=== PATIENT | male | born 1945 | race Caucasian/White ===

== ENCOUNTER 2019-01-06 15:06 | Inpatient (IN) | payer MEDICARE, OTHER ==
[~2019-01-06] VITALS: Ht 180.3 cm; Wt 63.6 kg
[2019-01-06] MEDS ORDERED: CefTRIAXone 2gm/D5W 50ml 50 ML IV ONE (15:35)
[2019-01-06] MEDS ORDERED: ipratropium 0.5 MG/2.5ML nebule IH ONE (15:35)
[2019-01-06] MEDS ORDERED: magnesium 2GM in 50ml NS 50 ML IV ONE (15:35)
[2019-01-06] MEDS ORDERED: albuterol 2.5 MG/3 ML nebule CONTNEB PRN ×2 (15:35→16:00)
[2019-01-06] MEDS ORDERED: methylPREDNISolone sod succ 125mg/2ml vial IV ONE (15:35)
[2019-01-06 15:37] LABS: BASOPHILS % (AUTO) 0.2 % (0-1); EOSINOPHILS # (AUTO) 0.1 X10'3 (0-0.9); EOSINOPHILS % (AUTO) 0.8 % (0-6); HEMATOCRIT 34.1 % (42.0-52.0); HEMOGLOBIN 11.3 g/dl (14.0-17.9); LYMPHOCYTES # (AUTO) 0.2 X10'3 (1.1-4.8); LYMPHOCYTES % (AUTO) 1.8 % (21-51); MEAN CORPUSCULAR HEMOGLOBIN 31.2 PG (27.0-31.0); MEAN CORPUSCULAR HGB CONC 33.3 g/dL (33.0-36.5); MEAN CORPUSCULAR VOLUME 93.7 FL (78-98); MEAN PLATELET VOLUME 7.6 FL (7.4-10.4); MONOCYTES # (AUTO) 0.7 X10'3 (0-0.9); MONOCYTES % (AUTO) 6.2 % (2-12); NEUTROPHILS # (AUTO) 10.4 X10'3 (1.8-7.7); PLATELET COUNT 330 X10'3 (140-440); RED BLOOD COUNT 3.64 X10'6 (4.70-6.10); RED CELL DISTRIBUTION WIDTH 13.1 % (11.5-14.5); WHITE BLOOD COUNT 11.4 X10'3 (4.5-11.0)
[2019-01-06 15:46] LABS: PARTIAL THROMBOPLASTIN TIME 35 SECONDS (22-32)
[2019-01-06 15:50] LABS: ALANINE AMINOTRANSFERASE 17 U/L (12-78); ALBUMIN 2.6 G/DL (3.4-5.0); ALBUMIN/GLOBULIN RATIO 0.5 (1.1-1.5); ALKALINE PHOSPHATASE 53 IU/L (46-116); ANION GAP 9 (8-16); ASPARTATE AMINO TRANSFERASE 10 U/L (10-37); BILIRUBIN,TOTAL 0.6 MG/DL (0.1-1.0); BLOOD UREA NITROGEN 26 MG/DL (7-18); BUN/CREATININE RATIO 27.7 (5.4-32.0); CALCIUM 9.3 MG/DL (8.5-10.1); CHLORIDE 97 MMOL/L (99-107); CREATININE 0.94 MG/DL (0.60-1.10); GLUCOSE 124 MG/DL (70-104); POTASSIUM 4.5 MMOL/L (3.5-5.1); SODIUM 132 MMOL/L (135-145); TOTAL CARBON DIOXIDE 26.3 MMOL/L (24-32); TOTAL PROTEIN 7.7 G/DL (6.4-8.2); eGFR 78 ML/MIN
[2019-01-06] MEDS ORDERED: azithromycin/NS 500mg/250ml 250 ML IV ONE (16:25)
[2019-01-06] MEDS ORDERED: ondansetron/PF 4mg/2ml inj IV PRN (18:15)
[2019-01-06] MEDS ORDERED: magnesium 4gm in 100ml NS 100 ML IV PRN (18:15)
[2019-01-06] MEDS ORDERED: docusate sod 100mg capsule PO PRN (18:15)
[2019-01-06] MEDS ORDERED: acetaminophen 325mg tablet PO PRN (18:15)
[2019-01-06] MEDS ORDERED: mag hydrox/Alum hydrox/simeth 30ml oral suspension PO PRN (18:15)
[2019-01-06] MEDS ORDERED: magnesium 2GM in 50ml NS 50 ML IV PRN (18:15)
[2019-01-06] MEDS ORDERED: potassium CL 10mEq/100ml bag 100 ML IV PRN ×2 (18:15)
[2019-01-06] MEDS ORDERED: potassium Cl 20 mEq SR tablet PO PRN ×2 (18:15)
[2019-01-06] MEDS ORDERED: normal saline 1000ML IV soln IVB ONE (19:25)
[2019-01-06] MEDS: ipratropium/albuterol 3ml nebule NEB SCH (20:00)
[2019-01-06 22:15] VITALS: BP 148/89
--- NOTE | 2019-01-06 22:15 | NUR ---
PATIENT ADMITTED TO ROOM 341 FOR RESPIRATORY FAILURE R/O TB. PLACED COMFORTABLE IN BED. VITAL SIGNS TAKEN AND RECORDED.
[2019-01-06] MEDS: normal saline 1000ml 1,000 ML IV SCH (22:37)
[2019-01-07] MEDS: methylPREDNISolone sod succ 125mg/2ml vial IV SCH ×4 (01:11→23:54)
[2019-01-07] MEDS: piperacillin/tazo 3.375gm/50ml 50 ML IV SCH ×4 (01:12→23:52)
[2019-01-07] MEDS: ipratropium/albuterol 3ml nebule NEB SCH ×4 (01:45→20:58)
[2019-01-07 04:47] LABS: BASOPHILS % (AUTO) 0.2 % (0-1); EOSINOPHILS % (AUTO) 0 % (0-6); HEMATOCRIT 29.1 % (42.0-52.0); HEMOGLOBIN 9.9 g/dl (14.0-17.9); LYMPHOCYTES # (AUTO) 0.1 X10'3 (1.1-4.8); LYMPHOCYTES % (AUTO) 1.7 % (21-51); MEAN CORPUSCULAR HEMOGLOBIN 31.9 PG (27.0-31.0); MEAN CORPUSCULAR VOLUME 93.7 FL (78-98); MEAN PLATELET VOLUME 7.7 FL (7.4-10.4); MONOCYTES # (AUTO) 0.1 X10'3 (0-0.9); MONOCYTES % (AUTO) 1.1 % (2-12); NEUTROPHILS # (AUTO) 7.2 X10'3 (1.8-7.7); PLATELET COUNT 282 X10'3 (140-440); RED CELL DISTRIBUTION WIDTH 13.1 % (11.5-14.5); WHITE BLOOD COUNT 7.4 X10'3 (4.5-11.0)
[2019-01-07 05:01] LABS: ALANINE AMINOTRANSFERASE 17 U/L (12-78); ALBUMIN 2.2 G/DL (3.4-5.0); ALBUMIN/GLOBULIN RATIO 0.5 (1.1-1.5); ALKALINE PHOSPHATASE 50 IU/L (46-116); ANION GAP 4 (8-16); ASPARTATE AMINO TRANSFERASE 10 U/L (10-37); BILIRUBIN,TOTAL 0.2 MG/DL (0.1-1.0); BLOOD UREA NITROGEN 26 MG/DL (7-18); BUN/CREATININE RATIO 28.3 (5.4-32.0); CALCIUM 8.6 MG/DL (8.5-10.1); CHLORIDE 103 MMOL/L (99-107); CREATININE 0.92 MG/DL (0.60-1.10); GLUCOSE 166 MG/DL (70-104); MAGNESIUM 2.1 MG/DL (1.5-2.4); POTASSIUM 4.3 MMOL/L (3.5-5.1); SODIUM 137 MMOL/L (135-145); TOTAL CARBON DIOXIDE 29.6 MMOL/L (24-32); TOTAL PROTEIN 6.7 G/DL (6.4-8.2); eGFR 80 ML/MIN
[2019-01-07] MEDS: normal saline 1000ml 1,000 ML IV SCH ×3 (05:23→23:51)
--- NOTE | 2019-01-07 06:23 | NUR ---
Problems reprioritized. Patient report given, questions answered & plan of care reviewed with ZHOU CARTAGENA.
[2019-01-07] MEDS: K and/or MAG REPLACEMENT MC SCH (06:57)
[2019-01-07] MEDS: enoxaparin 40mg/0.4ml syringe SQ SCH (07:50)
[2019-01-07 08:00] VITALS: BP 133/83
[2019-01-07] MEDS ORDERED: LOSA25TA41 PO ×2 (08:02→08:06)
[2019-01-07] MEDS ORDERED: HYDR-4353 PO (08:02)
[2019-01-07] MEDS ORDERED: OMEP20TA5 PO (08:06)
[2019-01-07] MEDS ORDERED: BUDE10.2 INH (08:06)
[2019-01-07] MEDS ORDERED: ATOR20TA66 PO (08:06)
[2019-01-07] MEDS ORDERED: IPRA4AER IH (08:13)
[2019-01-07] MEDS ORDERED: MEGE400O2 PO (08:14)
--- NOTE | 2019-01-07 10:00 | NUR ---
[facility] downtime charting.
[2019-01-07 11:00] VITALS: BP 114/43
[2019-01-07] MEDS ORDERED: ASPI-1265 PO (11:52)
[2019-01-07] MEDS ORDERED: CHOL400T32 PO (11:53)
--- NOTE | 2019-01-07 12:09 | NUR ---
Spoke with patients sister with patients permission. Updated patients home medications from sisters list. Gave patient 2 juices and cheese stick.
--- NOTE | 2019-01-07 14:00 | NUR ---
Patient removed from Isolation by Dr. Calixto.
--- NOTE | 2019-01-07 14:54 | NUR ---
Malnutrition consult: Per H&P pt reports 25 lb wt loss in 1 year with decreased appetite. Pt with no wt hx in EMR however if truly lost 25 lbs in 1 year this is non-significant wt loss of 15%. Pt currently on a regular diet, pending documentation of PO intake. Per RN notes pt received two juices and string cheese around noon. Pt with no documented decrease in muscle strength and trace edema. Pt currently does not meet criteria for malnutrition. Pt admit with acute on chronic respiratory failure, COPD exacerbation, currently in airborne ISO to r/o TB per RN notes and possibly with community acquired pneumonia versus undiagnosed lung cancer per CT results per H&P. Will continue to follow. Addendum: 01/07/19 at [address] Amended: Links added.
--- NOTE | 2019-01-07 16:26 | NUR ---
Patient eating a hamburger from outside source.
--- NOTE | 2019-01-07 18:08 | NUR ---
Problems reprioritized. Patient report given, questions answered & plan of care reviewed with Perla CARTAGENA.
--- NOTE | 2019-01-07 18:30 | NUR ---
Patient in room EM 341. I have received report from ZHOU CARTAGENA and had the opportunity to ask questions and assume patient care.
[2019-01-07] MEDS: megestrol acetate 400mg/10ml UD oral suspension PO SCH (19:56)
[2019-01-07 20:00] VITALS: BP 146/56
[2019-01-08] VITALS: BP 144/72
[2019-01-08] MEDS: ipratropium/albuterol 3ml nebule NEB SCH ×2 (03:08→07:12)
[2019-01-08 04:44] LABS: BASOPHILS % (AUTO) 0.1 % (0-1); EOSINOPHILS % (AUTO) 0 % (0-6); HEMATOCRIT 25.9 % (42.0-52.0); HEMOGLOBIN 8.7 g/dl (14.0-17.9); LYMPHOCYTES # (AUTO) 0.2 X10'3 (1.1-4.8); MEAN CORPUSCULAR HEMOGLOBIN 31.5 PG (27.0-31.0); MEAN CORPUSCULAR HGB CONC 33.7 g/dL (33.0-36.5); MEAN CORPUSCULAR VOLUME 93.6 FL (78-98); MEAN PLATELET VOLUME 7.5 FL (7.4-10.4); MONOCYTES # (AUTO) 0.1 X10'3 (0-0.9); MONOCYTES % (AUTO) 1.5 % (2-12); NEUTROPHILS # (AUTO) 8.4 X10'3 (1.8-7.7); NEUTROPHILS % (AUTO) 96.4 % (42-75); PLATELET COUNT 260 X10'3 (140-440); RED BLOOD COUNT 2.77 X10'6 (4.70-6.10); RED CELL DISTRIBUTION WIDTH 13.1 % (11.5-14.5); WHITE BLOOD COUNT 8.7 X10'3 (4.5-11.0)
[2019-01-08 05:01] LABS: ALANINE AMINOTRANSFERASE 20 U/L (12-78); ALBUMIN 2.1 G/DL (3.4-5.0); ALBUMIN/GLOBULIN RATIO 0.5 (1.1-1.5); ALKALINE PHOSPHATASE 38 IU/L (46-116); ANION GAP 5 (8-16); ASPARTATE AMINO TRANSFERASE 17 U/L (10-37); BILIRUBIN,TOTAL 0.2 MG/DL (0.1-1.0); BLOOD UREA NITROGEN 31 MG/DL (7-18); BUN/CREATININE RATIO 35.6 (5.4-32.0); CHLORIDE 106 MMOL/L (99-107); CREATININE 0.87 MG/DL (0.60-1.10); GLUCOSE 148 MG/DL (70-104); MAGNESIUM 1.7 MG/DL (1.5-2.4); POTASSIUM 4.3 MMOL/L (3.5-5.1); SODIUM 138 MMOL/L (135-145); TOTAL CARBON DIOXIDE 26.8 MMOL/L (24-32); TOTAL PROTEIN 6.2 G/DL (6.4-8.2); eGFR 86 ML/MIN
--- NOTE | 2019-01-08 06:30 | NUR ---
Problems reprioritized. Patient report given, questions answered & plan of care reviewed with JENNA CARTAGENA.
[2019-01-08 07:12] VITALS: BP 140/72
[2019-01-08] MEDS: enoxaparin 40mg/0.4ml syringe SQ SCH (07:41)
[2019-01-08] MEDS: megestrol acetate 400mg/10ml UD oral suspension PO SCH (07:41)
[2019-01-08] MEDS: methylPREDNISolone sod succ 125mg/2ml vial IV SCH ×2 (07:41)
[2019-01-08] MEDS: K and/or MAG REPLACEMENT MC SCH (07:42)
[2019-01-08] MEDS: piperacillin/tazo 3.375gm/50ml 50 ML IV SCH (07:42)
[2019-01-08] MEDS: normal saline 1000ml 1,000 ML IV SCH (09:01)
[2019-01-08 11:49] VITALS: BP 171/75
[2019-01-08] MEDS ORDERED: LEVO750T21 PO (12:32)
[2019-01-08] MEDS ORDERED: PRED20TA PO (12:32)
[2019-01-08] MEDS ORDERED: FURO20TA4 PO (12:35)
--- NOTE | 2019-01-08 13:52 | NUR ---
Patient discharged home with family member, stable and appropriate. Family brought home O2. IV removed, explosive operator supervisor removed. All belongings taken from room. [facility] Discharge instructions given and reviewed with patient and family member, all questions answered.
== END 2019-01-08 13:56 | disposition home or self-care (01) | DRG 871 ==
LOC: ER 15:07 → SUR 3N 21:11 → CMPBEDREQ 21:24
PROVIDERS: ADMIT Family Medicine; ATTEND Family Medicine
DX: A41.9 Sepsis, unspecified organism (principal); J96.20 Acute and chronic respiratory failure, unspecified whether with hypoxia or hypercapnia; I50.31 Acute diastolic (congestive) heart failure; J18.1 Lobar pneumonia, unspecified organism; J44.1 Chronic obstructive pulmonary disease with (acute) exacerbation; E87.1 Hypo-osmolality and hyponatremia; J44.0 Chronic obstructive pulmonary disease with (acute) lower respiratory infection; R64 Cachexia; Z68.1 Body mass index [BMI] 19.9 or less, adult; D64.9 Anemia, unspecified; E78.5 Hyperlipidemia, unspecified; I11.0 Hypertensive heart disease with heart failure; Z82.49 Family history of ischemic heart disease and other diseases of the circulatory system; Z87.891 Personal history of nicotine dependence; Z99.81 Dependence on supplemental oxygen
CPT/HCPCS: 36415; 71045; 71250; 80053; 83605; 83735; 83880; 84484; 85025; 85610; 85730; 87040; 87081; 93005; 93306; 94640; 94667; 94760; 96365; 96366; 96368; 96375; 99285; G0378; J0456; J0696; J1650; J2543; J2930; J3475; J7030

== ENCOUNTER 2019-02-25 14:22 | Inpatient (IN) | payer MEDICARE, OTHER ==
[~2019-02-25] VITALS: Ht 180.3 cm; Wt 80.0 kg
[~2019-02-25 14:22] MED LIST: ASPI-1265 PO; ATOR20TA66 PO; BUDE10.2 INH; CHOL400T32 PO; FURO20TA4 PO; HYDR-4353 PO; IPRA4AER IH; LOSA25TA41 PO; MEGE400O2 PO; OMEP20TA5 PO
[2019-02-25] MEDS ORDERED: ipratropium/albuterol 3ml nebule NEB ONE (15:15)
[2019-02-25] MEDS ORDERED: methylPREDNISolone sod succ 125mg/2ml vial IV ONE (15:15)
[2019-02-25 15:35] LABS: BASOPHILS # (AUTO) 0.1 X10'3 (0-0.2); BASOPHILS % (AUTO) 0.6 % (0-1); EOSINOPHILS # (AUTO) 0.1 X10'3 (0-0.9); EOSINOPHILS % (AUTO) 0.3 % (0-6); LYMPHOCYTES # (AUTO) 0.4 X10'3 (1.1-4.8); LYMPHOCYTES % (AUTO) 2.4 % (21-51); MEAN CORPUSCULAR HEMOGLOBIN 29.5 PG (27.0-31.0); MEAN CORPUSCULAR HGB CONC 32.5 g/dL (33.0-36.5); MEAN CORPUSCULAR VOLUME 90.9 FL (78-98); MEAN PLATELET VOLUME 7.5 FL (7.4-10.4); MONOCYTES # (AUTO) 0.9 X10'3 (0-0.9); NEUTROPHILS # (AUTO) 16.4 X10'3 (1.8-7.7); NEUTROPHILS % (AUTO) 91.7 % (42-75); PLATELET COUNT 369 X10'3 (140-440); RED BLOOD COUNT 3.74 X10'6 (4.70-6.10); RED CELL DISTRIBUTION WIDTH 15.2 % (11.5-14.5); WHITE BLOOD COUNT 17.9 X10'3 (4.5-11.0)
[2019-02-25] MEDS ORDERED: levoFLOXACIN 750MG TABLET PO ONE (15:45)
[2019-02-25] MEDS ORDERED: normal saline 1000ml 1,000 ML IV ONE (16:00)
[2019-02-25 16:07] LABS: ALANINE AMINOTRANSFERASE 15 U/L (12-78); ALBUMIN 2.6 G/DL (3.4-5.0); ALBUMIN/GLOBULIN RATIO 0.4 (1.1-1.5); ALKALINE PHOSPHATASE 57 IU/L (46-116); ANION GAP 11 (8-16); ASPARTATE AMINO TRANSFERASE 13 U/L (10-37); BILIRUBIN,TOTAL 0.8 MG/DL (0.1-1.0); BLOOD UREA NITROGEN 34 MG/DL (7-18); BUN/CREATININE RATIO 22.8 (5.4-32.0); CALCIUM 9.2 MG/DL (8.5-10.1); CHLORIDE 99 MMOL/L (99-107); CREATININE 1.49 MG/DL (0.60-1.10); GLUCOSE 147 MG/DL (70-104); POTASSIUM 4.6 MMOL/L (3.5-5.1); SODIUM 142 MMOL/L (135-145); TOTAL CARBON DIOXIDE 31.8 MMOL/L (24-32); TOTAL PROTEIN 8.4 G/DL (6.4-8.2); eGFR 46 ML/MIN
[2019-02-25 16:16] LABS: TROPONIN I < 0.04 NG/ML (0.0-0.05)
[2019-02-25] MEDS ORDERED: normal saline 1000ML IV soln IVB ONE ×2 (16:35)
[2019-02-25] MEDS ORDERED: BUDE10.2 INH (16:54)
[2019-02-25] MEDS ORDERED: IPRA4AER IH (16:54)
[2019-02-25] MEDS ORDERED: LOSA50TA64 PO (16:54)
[2019-02-25] MEDS ORDERED: FURO20TA4 PO (16:54)
[2019-02-25] MEDS ORDERED: ASPI-107 PEG (16:54)
[2019-02-25] MEDS ORDERED: DILT120C10 PO (16:54)
[2019-02-25] MEDS ORDERED: acetaminophen 325mg tablet PO PRN (16:55)
[2019-02-25] MEDS ORDERED: ondansetron/PF 4mg/2ml inj IV PRN (16:55)
[2019-02-25] MEDS ORDERED: HYDROcodone/acetaminophen 5mg/325mg tablet PO PRN (16:55)
[2019-02-25] MEDS ORDERED: morphine 2 MG/ML inj. syringe IV PRN (16:55)
[2019-02-25] MEDS ORDERED: mag hydrox/Alum hydrox/simeth 30ml oral suspension PO PRN (16:55)
[2019-02-25] MEDS ORDERED: magnesium hydroxide 30ml (MOM) UD suspension PO PRN (16:55)
[2019-02-25] MEDS ORDERED: POTA-82 PO (16:57)
[2019-02-25] MEDS: normal saline 1000ml 1,000 ML IV SCH (18:32)
[2019-02-25] MEDS ORDERED: albuterol 2.5 MG/3 ML nebule NEB PRN (18:40)
[2019-02-25 18:58] LABS: CLARITY,URINE CLEAR (Clear); COLOR,URINE YELLOW (Yellow); GLUCOSE, URINE NEGATIVE (Neg); KETONES,URINE NEGATIVE (Neg); LEUKOCYTE ESTERASE ,URINE NEGATIVE (Neg); NITRITES, URINE NEGATIVE (Neg); OCCULT BLOOD,URINE NEGATIVE (Neg); PROTEIN,URINE NEGATIVE (Neg); UROBILINOGEN,URINE 0.2 E.U/dL (0.2-1.0)
[2019-02-25 19:02] LABS: UA COLLECTION TYPE NON-SPECIFIED
[2019-02-25] MEDS: vancomycin/NS 1 GM ADD-VANTAGE 250 ML IV SCH (19:16)
[2019-02-25 19:30] VITALS: BP 157/78
--- NOTE | 2019-02-25 19:35 | NUR ---
pt arrived to floor via guerney. transferred to bed. oriented to unit and given call light. family present. 2 RN skin check done. pt on bipap. bed low and locked. respirations in 30s. bedside monitor in place.
[2019-02-25] MEDS ORDERED: non-formulary drug (Ipratropium/Albuterol Sulfate (Combivent Respimat Inhal Spray) 1 PUFFS IH SCH (21:00)
[2019-02-25] MEDS: budesonide 0.5mg/2ml UD nebule IH SCH (22:02)
[2019-02-25] MEDS: ipratropium/albuterol 3ml nebule IH SCH (22:02)
[2019-02-25 22:15] VITALS: BP 132/69
[2019-02-25 22:30] VITALS: BP 130/66
[2019-02-25 22:45] VITALS: BP 131/66
[2019-02-25 23:00] VITALS: BP_SYST 132; BP_SYST 134; BP_DIAS 68; BP_DIAS 69
[2019-02-25 23:30] VITALS: BP 142/66
[2019-02-26] VITALS (11 sets, daily range): BP systolic 119–151; BP diastolic 60–106
[2019-02-26] MEDS ORDERED: cefepime 1GM in D5W 50mL 50 ML IV SCH
[2019-02-26] MEDS: cefepime 1GM/NS ADD-VANTAGE 100 ML IV SCH ×4 (00:06→23:25)
--- NOTE | 2019-02-26 04:27 | NUR ---
orientee documentation: I have reviewed and agree with all interventions, meds given, assessments performed and documented by Rashida CARTAGENA.
[2019-02-26 05:48] LABS: BASOPHILS % (AUTO) 0.1 % (0-1); EOSINOPHILS % (AUTO) 0 % (0-6); HEMATOCRIT 26.1 % (42.0-52.0); HEMOGLOBIN 8.5 g/dl (14.0-17.9); LYMPHOCYTES # (AUTO) 0.3 X10'3 (1.1-4.8); LYMPHOCYTES % (AUTO) 2.5 % (21-51); MEAN CORPUSCULAR HEMOGLOBIN 29.1 PG (27.0-31.0); MEAN CORPUSCULAR HGB CONC 32.4 g/dL (33.0-36.5); MEAN CORPUSCULAR VOLUME 89.5 FL (78-98); MEAN PLATELET VOLUME 7.8 FL (7.4-10.4); MONOCYTES # (AUTO) 0.2 X10'3 (0-0.9); MONOCYTES % (AUTO) 1.9 % (2-12); NEUTROPHILS # (AUTO) 12.7 X10'3 (1.8-7.7); NEUTROPHILS % (AUTO) 95.5 % (42-75); PLATELET COUNT 275 X10'3 (140-440); RED BLOOD COUNT 2.91 X10'6 (4.70-6.10); RED CELL DISTRIBUTION WIDTH 15.1 % (11.5-14.5); WHITE BLOOD COUNT 13.3 X10'3 (4.5-11.0)
[2019-02-26 06:26] LABS: ANION GAP 9 (8-16); BLOOD UREA NITROGEN 30 MG/DL (7-18); BUN/CREATININE RATIO 25.2 (5.4-32.0); CALCIUM 8.1 MG/DL (8.5-10.1); CHLORIDE 109 MMOL/L (99-107); CREATININE 1.19 MG/DL (0.60-1.10); GLUCOSE 160 MG/DL (70-104); SODIUM 144 MMOL/L (135-145); TOTAL CARBON DIOXIDE 26.4 MMOL/L (24-32); eGFR 60 ML/MIN
--- NOTE | 2019-02-26 06:30 | NUR ---
Problems reprioritized. Patient report given, questions answered & plan of care reviewed with Tameka CARTAGENA.
--- NOTE | 2019-02-26 06:30 | NUR ---
Patient in room PCU 3023. I have received report and had the opportunity to ask questions and assume patient care.
[2019-02-26 06:40] LABS: TOTAL CELLS COUNTED 100
[2019-02-26 06:41] LABS: LARGE PLATELETS FEW; PLATELET ESTIMATE NORMAL
[2019-02-26] MEDS: ipratropium/albuterol 3ml nebule IH SCH ×4 (07:19→20:04)
[2019-02-26] MEDS: budesonide 0.5mg/2ml UD nebule IH SCH ×2 (07:25→20:04)
[2019-02-26] MEDS: atorvastatin 20mg tablet PO SCH (07:56)
[2019-02-26] MEDS: cholecalciferol (vitamin D) 400 unit tablet PO SCH (07:56)
[2019-02-26] MEDS: pantoprazole 40mg Tablet.DR PO SCH (07:56)
[2019-02-26] MEDS: aspirin 81mg tablet.DR PO SCH (07:56)
[2019-02-26] MEDS: megestrol acetate 400mg/10ml UD oral suspension PO SCH (07:56)
[2019-02-26] MEDS: losartan 50mg tablet PO SCH (07:57)
[2019-02-26] MEDS: diltiazem CD 120mg capsule (once-daily) PO SCH (07:57)
[2019-02-26] MEDS: potassium chloride 10mEq ER tablet PO SCH (07:57)
[2019-02-26] MEDS ORDERED: non-formulary drug (Aspirin (Aspirin Ec) 1 TAB) PEG SCH (08:00)
[2019-02-26] MEDS ORDERED: furosemide 20MG tablet PO SCH (08:00)
[2019-02-26] MEDS ORDERED: non-formulary drug (Omeprazole 2 TAB) PO SCH (08:00)
[2019-02-26] MEDS ORDERED: POTASSIUM CHLORIDE PO SCH (08:00)
[2019-02-26] MEDS: normal saline 1000ml 1,000 ML IV SCH ×2 (12:54→23:19)
--- NOTE | 2019-02-26 18:20 | NUR ---
Problems reprioritized. Patient report given, questions answered & plan of care reviewed with OSIEL Nunez.
--- NOTE | 2019-02-26 18:20 | NUR ---
Patient in room PCU 3029D. I have received report from OSIEL Paz and had the opportunity to ask questions and assume patient care. Pt denies nausea, n/v. dizziness, SOB and rated pain 7/10. Will continue to monitor
[2019-02-26] MEDS: vancomycin/NS 1 GM ADD-VANTAGE 250 ML IV SCH (20:20)
[2019-02-26] MEDS: lactobacillus rhamnosus 10,000 MMU CELLS/CAPSULE PO SCH (20:20)
[2019-02-26] MEDS: morphine 2 MG/ML inj. syringe IV PRN (20:25)
[2019-02-26] MEDS ORDERED: diltiazem 30mg tablet PO ONE (23:00)
[2019-02-27] VITALS (10 sets, daily range): BP systolic 102–141; BP diastolic 59–75
[2019-02-27] MEDS: normal saline 1000ml 1,000 ML IV SCH ×3 (00:15→14:36)
[2019-02-27] MEDS: diltiazem-NS 100mg/100ml 100 ML IV SCH ×2 (01:57→18:35)
[2019-02-27 05:52] LABS: BASOPHILS % (AUTO) 0.1 % (0-1); EOSINOPHILS % (AUTO) 0 % (0-6); HEMATOCRIT 25.5 % (42.0-52.0); HEMOGLOBIN 8.2 g/dl (14.0-17.9); LYMPHOCYTES # (AUTO) 0.4 X10'3 (1.1-4.8); LYMPHOCYTES % (AUTO) 2.6 % (21-51); MEAN CORPUSCULAR HEMOGLOBIN 29.3 PG (27.0-31.0); MEAN CORPUSCULAR VOLUME 91.8 FL (78-98); MEAN PLATELET VOLUME 7.9 FL (7.4-10.4); MONOCYTES # (AUTO) 0.6 X10'3 (0-0.9); MONOCYTES % (AUTO) 4.1 % (2-12); NEUTROPHILS # (AUTO) 13.6 X10'3 (1.8-7.7); NEUTROPHILS % (AUTO) 93.2 % (42-75); PLATELET COUNT 275 X10'3 (140-440); RED BLOOD COUNT 2.78 X10'6 (4.70-6.10); RED CELL DISTRIBUTION WIDTH 15.3 % (11.5-14.5); WHITE BLOOD COUNT 14.6 X10'3 (4.5-11.0)
[2019-02-27 06:01] LABS: ALBUMIN 1.8 G/DL (3.4-5.0); ANION GAP 4 (8-16); BLOOD UREA NITROGEN 33 MG/DL (7-18); BUN/CREATININE RATIO 30.8 (5.4-32.0); CALCIUM 8.7 MG/DL (8.5-10.1); CHLORIDE 111 MMOL/L (99-107); CREATININE 1.07 MG/DL (0.60-1.10); GLUCOSE 127 MG/DL (70-104); POTASSIUM 4.7 MMOL/L (3.5-5.1); SODIUM 144 MMOL/L (135-145); TOTAL CARBON DIOXIDE 28.6 MMOL/L (24-32); eGFR 67 ML/MIN
--- NOTE | 2019-02-27 06:20 | NUR ---
Problems reprioritized. Patient report given, questions answered & plan of care reviewed with Justin. Patient stable at shift change.
--- NOTE | 2019-02-27 06:45 | NUR ---
Patient in room PCU 3023. I have received report from Enrique CARTAGENA and had the opportunity to ask questions and assume patient care.
[2019-02-27] MEDS: potassium chloride 10mEq ER tablet PO SCH (06:46)
[2019-02-27] MEDS: ipratropium/albuterol 3ml nebule IH SCH ×4 (07:01→19:12)
[2019-02-27] MEDS: budesonide 0.5mg/2ml UD nebule IH SCH ×2 (07:01→19:12)
[2019-02-27] MEDS: aspirin 81mg tablet.DR PO SCH (07:59)
[2019-02-27] MEDS: atorvastatin 20mg tablet PO SCH (07:59)
[2019-02-27] MEDS: losartan 50mg tablet PO SCH (07:59)
[2019-02-27] MEDS: pantoprazole 40mg Tablet.DR PO SCH (07:59)
[2019-02-27] MEDS: lactobacillus rhamnosus 10,000 MMU CELLS/CAPSULE PO SCH ×2 (07:59→19:47)
[2019-02-27] MEDS: cholecalciferol (vitamin D) 400 unit tablet PO SCH (08:00)
[2019-02-27] MEDS: diltiazem CD 120mg capsule (once-daily) PO SCH (08:00)
[2019-02-27] MEDS: vancomycin/NS 1 GM ADD-VANTAGE 250 ML IV SCH ×2 (08:00→19:47)
[2019-02-27] MEDS: megestrol acetate 400mg/10ml UD oral suspension PO SCH (08:20)
[2019-02-27] MEDS: HYDROcodone/acetaminophen 10/325mg tab PO PRN (08:21)
[2019-02-27] MEDS: cefepime 1GM/NS ADD-VANTAGE 100 ML IV SCH ×3 (10:18→23:57)
--- NOTE | 2019-02-27 11:22 | NUR ---
Student documentation: I have reviewed all interventions, assessments performed and documented by Ariadne Espinoza. Student Medication Administration: For this medication-pass time frame, all medication were reviewed, dispensed, administered and documented per hospital policy by Ariadne Espinoza .
[2019-02-27] MEDS: morphine 2 MG/ML inj. syringe IV PRN (13:19)
--- NOTE | 2019-02-27 18:13 | NUR ---
Problems reprioritized. Patient report given, questions answered & plan of care reviewed with OSIEL Nunez.
--- NOTE | 2019-02-27 18:15 | NUR ---
Patient in room PCU 3023B. I have received report from OSIEL Anderson and had the opportunity to ask questions and assume patient care. Pt is sleeping comfortably with no sign of distress. Will continue to monitor
[2019-02-27] MEDS: guaiFENesin ER 600mg tablet PO SCH (19:54)
[2019-02-28] VITALS (7 sets, daily range): BP systolic 104–134; BP diastolic 55–99
[2019-02-28 05:24] LABS: BASOPHILS % (AUTO) 0.5 % (0-1); EOSINOPHILS # (AUTO) 0.1 X10'3 (0-0.9); EOSINOPHILS % (AUTO) 1.1 % (0-6); HEMATOCRIT 27.9 % (42.0-52.0); LYMPHOCYTES # (AUTO) 0.5 X10'3 (1.1-4.8); LYMPHOCYTES % (AUTO) 4.4 % (21-51); MEAN CORPUSCULAR HEMOGLOBIN 29.6 PG (27.0-31.0); MEAN CORPUSCULAR HGB CONC 32.2 g/dL (33.0-36.5); MEAN CORPUSCULAR VOLUME 92.1 FL (78-98); MEAN PLATELET VOLUME 7.7 FL (7.4-10.4); MONOCYTES # (AUTO) 0.6 X10'3 (0-0.9); NEUTROPHILS # (AUTO) 9.1 X10'3 (1.8-7.7); PLATELET COUNT 321 X10'3 (140-440); RED BLOOD COUNT 3.03 X10'6 (4.70-6.10); RED CELL DISTRIBUTION WIDTH 15.7 % (11.5-14.5); WHITE BLOOD COUNT 10.3 X10'3 (4.5-11.0)
[2019-02-28] MEDS: normal saline 1000ml 1,000 ML IV SCH (05:27)
[2019-02-28 05:34] LABS: ALBUMIN 2.1 G/DL (3.4-5.0); ANION GAP 9 (8-16); BLOOD UREA NITROGEN 29 MG/DL (7-18); CALCIUM 8.2 MG/DL (8.5-10.1); CHLORIDE 112 MMOL/L (99-107); GLUCOSE 101 MG/DL (70-104); POTASSIUM 4.2 MMOL/L (3.5-5.1); SODIUM 147 MMOL/L (135-145); TOTAL CARBON DIOXIDE 25.7 MMOL/L (24-32); eGFR 73 ML/MIN
--- NOTE | 2019-02-28 06:11 | NUR ---
Problems reprioritized. Patient report given, questions answered & plan of care reviewed with OSIEL Anderson. Patient stable at shift change
[2019-02-28 06:43] LABS: TOTAL CELLS COUNTED 100
[2019-02-28 06:45] LABS: ANISOCYTOSIS 1+; PLATELET ESTIMATE NORMAL
[2019-02-28 06:46] LABS: TOXIC GRANULATION 1+
[2019-02-28] MEDS: lactobacillus rhamnosus 10,000 MMU CELLS/CAPSULE PO SCH (08:02)
[2019-02-28] MEDS: aspirin 81mg tablet.DR PO SCH (08:02)
[2019-02-28] MEDS: guaiFENesin ER 600mg tablet PO SCH (08:02)
[2019-02-28] MEDS: diltiazem CD 120mg capsule (once-daily) PO SCH (08:03)
[2019-02-28] MEDS: ipratropium/albuterol 3ml nebule IH SCH ×2 (08:04→11:43)
[2019-02-28] MEDS: potassium chloride 10mEq ER tablet PO SCH (08:04)
[2019-02-28] MEDS: budesonide 0.5mg/2ml UD nebule IH SCH (08:05)
[2019-02-28] MEDS: HYDROcodone/acetaminophen 10/325mg tab PO PRN (08:05)
[2019-02-28] MEDS: megestrol acetate 400mg/10ml UD oral suspension PO SCH (08:06)
[2019-02-28] MEDS: cholecalciferol (vitamin D) 400 unit tablet PO SCH (08:06)
[2019-02-28] MEDS: losartan 50mg tablet PO SCH (08:06)
[2019-02-28] MEDS: cefepime 1GM/NS ADD-VANTAGE 100 ML IV SCH (08:06)
[2019-02-28] MEDS: pantoprazole 40mg Tablet.DR PO SCH (08:06)
[2019-02-28] MEDS: atorvastatin 20mg tablet PO SCH (08:06)
[2019-02-28] MEDS: vancomycin/NS 1 GM ADD-VANTAGE 250 ML IV SCH (09:18)
[2019-02-28] MEDS ORDERED: diltiazem 30mg tablet PO ONE (10:15)
[2019-02-28] MEDS: diltiazem-NS 100mg/100ml 100 ML IV SCH (11:40)
--- NOTE | 2019-02-28 11:45 | NUR ---
Per Debra with Discharge Planning, pt to be sent to rehab today and needs extended PIV prior to discharge, PICC RN notified, she states that she will be here in 30-45 minutes.
--- NOTE | 2019-02-28 13:24 | NUR ---
I have reviewed and agree with all medications administered and interventions performed by ATTIC BLOWER Student Zari Carvalho.
--- NOTE | 2019-02-28 15:31 | NUR ---
Piacked up to go to [facility].
[2019-02-28] MEDS ORDERED: VANCOMYCIN LEVEL IV ONE (18:30)
[2019-03-01] MEDS ORDERED: diltiazem CD 180mg cap (once-daily) PO SCH (08:00)
== END 2019-02-28 14:15 | DRG 189 ==
LOC: ER 14:22 → ED HOLD 17:16 → PCU 3S 20:26
PROVIDERS: ADMIT Internal Medicine; ATTEND Family Medicine
PROC: 5A09357 Assistance with Respiratory Ventilation, Less than 24 Consecutive Hours, Continuous Positive Airway Pressure (ICD-10-PCS; principal; 2019-02-25)
DX: J96.21 Acute and chronic respiratory failure with hypoxia (principal); J18.9 Pneumonia, unspecified organism; N17.9 Acute kidney failure, unspecified; J44.1 Chronic obstructive pulmonary disease with (acute) exacerbation; E87.2 Acidosis; J44.0 Chronic obstructive pulmonary disease with (acute) lower respiratory infection; D63.8 Anemia in other chronic diseases classified elsewhere; G89.29 Other chronic pain; W01.10XA Fall on same level from slipping, tripping and stumbling with subsequent striking against unspecified object, initial encounter; R03.0 Elevated blood-pressure reading, without diagnosis of hypertension; E78.5 Hyperlipidemia, unspecified; I27.81 Cor pulmonale (chronic); K21.9 Gastro-esophageal reflux disease without esophagitis; Y95 Nosocomial condition; Z77.22 Contact with and (suspected) exposure to environmental tobacco smoke (acute) (chronic); Z86.73 Personal history of transient ischemic attack (TIA), and cerebral infarction without residual deficits; Z87.891 Personal history of nicotine dependence; Y93.89 Activity, other specified; Y92.091 Bathroom in other non-institutional residence as the place of occurrence of the external cause; Y99.8 Other external cause status; Z82.49 Family history of ischemic heart disease and other diseases of the circulatory system; Z79.899 Other long term (current) drug therapy; Z79.82 Long term (current) use of aspirin
CPT/HCPCS: 36415; 71046; 80048; 80053; 81003; 83605; 83880; 84145; 84439; 84443; 84484; 85025; 87040; 87081; 93005; 94640; 94660; 94760; 96361; 96374; 97112; 97116; 97161; 97530; 99285; G0378; J0692; J2270; J2930; J3370; J3490; J7030; J7626

== ENCOUNTER 2019-04-28 11:27 | Inpatient (IN) | payer MEDICARE, OTHER ==
[~2019-04-28] VITALS: Ht 180.3 cm; Wt 76.4 kg
[~2019-04-28 11:27] MED LIST changes: +ASPI-107 PO; -ASPI-1265 PO; +DILT120C10 PO; -LOSA25TA41 PO; +LOSA50TA64 PO; +POTA-82 PO
[2019-04-28 12:08] LABS: BASOPHILS % (AUTO) 0.2 % (0-1); EOSINOPHILS % (AUTO) 0.3 % (0-6); HEMATOCRIT 33.4 % (42.0-52.0); HEMOGLOBIN 10.6 g/dl (14.0-17.9); LYMPHOCYTES # (AUTO) 0.4 X10'3 (1.1-4.8); LYMPHOCYTES % (AUTO) 2.2 % (21-51); MEAN CORPUSCULAR HEMOGLOBIN 28.6 PG (27.0-31.0); MEAN CORPUSCULAR HGB CONC 31.8 g/dL (33.0-36.5); MEAN CORPUSCULAR VOLUME 89.8 FL (78-98); MEAN PLATELET VOLUME 7.2 FL (7.4-10.4); MONOCYTES # (AUTO) 0.8 X10'3 (0-0.9); NEUTROPHILS # (AUTO) 15.5 X10'3 (1.8-7.7); NEUTROPHILS % (AUTO) 92.3 % (42-75); PLATELET COUNT 438 X10'3 (140-440); RED BLOOD COUNT 3.72 X10'6 (4.70-6.10); RED CELL DISTRIBUTION WIDTH 15.9 % (11.5-14.5); WHITE BLOOD COUNT 16.8 X10'3 (4.5-11.0)
[2019-04-28] MEDS ORDERED: levoFLOXACIN-Levaquin 750MG/D5 150 ML IV ONE (12:10)
[2019-04-28] MEDS ORDERED: vancomycin/NS 1 GM ADD-VANTAGE 250 ML IV ONE (12:15)
[2019-04-28] MEDS ORDERED: ipratropium/albuterol 3ml nebule NEB ONE (12:15)
[2019-04-28] MEDS ORDERED: diltiazem 5mg/ml 5ml inj. IV ONE (12:15)
[2019-04-28] MEDS ORDERED: methylPREDNISolone sod succ 125mg/2ml vial IV ONE (12:15)
[2019-04-28 12:28] LABS: ALBUMIN 1.8 G/DL (3.4-5.0); ALBUMIN/GLOBULIN RATIO 0.4 (1.1-1.5); ALKALINE PHOSPHATASE 67 IU/L (46-116); ANION GAP 7 (8-16); ASPARTATE AMINO TRANSFERASE 11 U/L (10-37); BILIRUBIN,TOTAL 0.4 MG/DL (0.1-1.0); BLOOD UREA NITROGEN 23 MG/DL (7-18); BUN/CREATININE RATIO 17.6 (5.4-32.0); CALCIUM 8.9 MG/DL (8.5-10.1); CHLORIDE 102 MMOL/L (99-107); CREATININE 1.31 MG/DL (0.60-1.10); GLUCOSE 144 MG/DL (70-104); POTASSIUM 4.5 MMOL/L (3.5-5.1); SODIUM 141 MMOL/L (135-145); TOTAL PROTEIN 6.6 G/DL (6.4-8.2); eGFR 53 ML/MIN
[2019-04-28 12:30] LABS: BANDS% (MANUAL) 30 % (0-10); BASOPHILS % (MANUAL) 1 % (0-1); LYMPHOCYTES % (MANUAL) 2 % (21-51); MONOCYTES % (MANUAL) 4 % (2-12); NEUTROPHILS % (MANUAL) 62 % (42-75); TOTAL CELLS COUNTED 100
[2019-04-28 12:31] LABS: ALANINE AMINOTRANSFERASE < 6 U/L (12-78); ELLIPTOCYTES 1+; METAMYLEOCYTES% (MANUAL) 1 % (0-0); PLATELET ESTIMATE INCREASED; POLYCHROMASIA FEW
[2019-04-28 12:50] LABS: PARTIAL THROMBOPLASTIN TIME 27 SECONDS (22-32)
[2019-04-28 12:55] LABS: MAGNESIUM 1.8 MG/DL (1.5-2.4)
[2019-04-28] MEDS ORDERED: normal saline 1000ML IV soln IVB ONE (13:10)
[2019-04-28 13:20] LABS: ABG BASE EXCESS 4.2 mmol/L (-2.0-3.0); ABG HCO3 29.5 mmol/L (22.0-26.0); ABG OXYGEN SATURATION 93.3 % (95-98); ABG PCO2 (T) 47.3 mmHg (35.0-45.0); ABG PH (T) 7.413 (7.350-7.450); ABG PO2 (T) 69.1 mmHg (83-108); ALLEN'S TEST Positive; FCOHb 0.5 % (0.5-1.5); FLOW 15 L/min; FMetHb 0.1 % (0.3-1.12); FO2Hb 92.7 % (94-100); RESPIRATORY RATE (OBSERVED) 30 b/min
[2019-04-28] MEDS ORDERED: magnesium hydroxide 30ml (MOM) UD suspension PO PRN (13:40)
[2019-04-28] MEDS ORDERED: acetaminophen 325mg tablet PO PRN ×2 (13:40)
[2019-04-28] MEDS ORDERED: mag hydrox/Alum hydrox/simeth 30ml oral suspension PO PRN (13:40)
[2019-04-28] MEDS ORDERED: ondansetron/PF 4mg/2ml inj IV PRN (13:40)
[2019-04-28] MEDS ORDERED: POTA10TA36 PO (14:38)
[2019-04-28] MEDS ORDERED: LACTC PO (14:38)
[2019-04-28] MEDS ORDERED: PRED5TAB49 PO (14:38)
[2019-04-28] MEDS ORDERED: NYST1000 PO (14:38)
--- NOTE | 2019-04-28 15:30 | NUR ---
Patient in room PCU 3018. I have received report from FIBER OPTIC TECHNICIAN and had the opportunity to ask questions and assume patient care.
--- NOTE | 2019-04-28 15:44 | NUR ---
Patient has arrived to room 3018A via gurney and accompanied by Meghana, RN and RT. Patient was transferred onto the hospital bed, placed on tele, oriented to the room (call light, room #, etc.). Patient has been placed on tele #41, 60L Hi Flow NC, and v/s have been taken (BP: 140/63 (77), 8/10 pain. 99.5F axillary, 90% SpO2 on 60L [place] NC, HR:100). Patient has no questions at this time and family will be leaving shortly. Will continue to monitor the patient until his Primary RN, Lottie takes over.
[2019-04-28 16:09] VITALS: BP 140/63
[2019-04-28] MEDS: HYDROcodone/acetaminophen 5mg/325mg tablet PO PRN (16:38)
--- NOTE | 2019-04-28 17:30 | NUR ---
Pt arrived on unit Addendum: 04/28/19 at 1752 by Lottie Marmolejo RN disregard note. wrong pt.
--- NOTE | 2019-04-28 17:41 | NUR ---
Sent to Dr Rodriguez PAGER ID: [phone] MESSAGE: RE: Kvng Roe [id number]. Pt just converted to rapid a fib from sinus tach with PACs. -Lottie [phone]
[2019-04-28] MEDS ORDERED: digoxin 250mcg/ml 2ml ampule IV ONE (18:15)
[2019-04-28] MEDS ORDERED: furosemide 20 MG/2 ML vial IV ONE (18:15)
--- NOTE | 2019-04-28 18:27 | NUR ---
Dr Rodriguez ordered 0.5mg Digoxin IV now once. Called for verification. Dr Rodriguez confirmed he does want 0.5mg Digoxin.
--- NOTE | 2019-04-28 18:38 | NUR ---
Problems reprioritized. Patient report given, questions answered & plan of care reviewed with OSIEL Escalera. Addendum: 04/28/19 at 1840 by Lottie Marmolejo RN Problems reprioritized. Patient report given, questions answered & plan of care reviewed with OSIEL BELTRAN.
[2019-04-28 19:00] VITALS: BP 104/65
[2019-04-28] MEDS: morphine 2 MG/ML inj. syringe IV PRN (19:23)
--- NOTE | 2019-04-28 19:39 | NUR ---
Patient in room PCU 3018. I have received report from Lottie CARTAGENA and had the opportunity to ask questions and assume patient care. pt is on 60L high flow, AAOx4, resting on bed
--- NOTE | 2019-04-28 19:39 | NUR ---
RT put pt on bipap at 60%, pt got digoxin but BP so will give once time lasix in an hour when BP is improve, it was 90/62
--- NOTE | 2019-04-28 20:03 | NUR ---
discussed with Dr. Razo about pt low BP 92/62 , Dr wanted to hold lasix due low BP and Hr is in the 120-130 rate still in afib
[2019-04-28 23:00] VITALS: BP 115/71
[2019-04-29] MEDS: morphine 2 MG/ML inj. syringe IV PRN ×2 (00:17→04:51)
[2019-04-29 02:00] VITALS: BP 115/71
[2019-04-29 06:00] VITALS: BP 151/67
--- NOTE | 2019-04-29 06:14 | NUR ---
Problems reprioritized. Patient report given, questions answered & plan of care reviewed with Manjula CARTAGENA.
[2019-04-29 06:19] LABS: BASOPHILS % (AUTO) 0.1 % (0-1); EOSINOPHILS % (AUTO) 0 % (0-6); HEMATOCRIT 28.3 % (42.0-52.0); HEMOGLOBIN 9.2 g/dl (14.0-17.9); LYMPHOCYTES # (AUTO) 0.3 X10'3 (1.1-4.8); MEAN CORPUSCULAR HEMOGLOBIN 28.5 PG (27.0-31.0); MEAN CORPUSCULAR HGB CONC 32.4 g/dL (33.0-36.5); MEAN PLATELET VOLUME 7.4 FL (7.4-10.4); MONOCYTES # (AUTO) 0.3 X10'3 (0-0.9); NEUTROPHILS # (AUTO) 13.3 X10'3 (1.8-7.7); NEUTROPHILS % (AUTO) 95.9 % (42-75); PLATELET COUNT 372 X10'3 (140-440); RED BLOOD COUNT 3.21 X10'6 (4.70-6.10); RED CELL DISTRIBUTION WIDTH 15.8 % (11.5-14.5); WHITE BLOOD COUNT 13.9 X10'3 (4.5-11.0)
[2019-04-29 06:35] LABS: ALBUMIN 1.5 G/DL (3.4-5.0); ANION GAP 4 (8-16); BLOOD UREA NITROGEN 22 MG/DL (7-18); BUN/CREATININE RATIO 23.4 (5.4-32.0); CALCIUM 8.6 MG/DL (8.5-10.1); CHLORIDE 107 MMOL/L (99-107); CREATININE 0.94 MG/DL (0.60-1.10); GLUCOSE 140 MG/DL (70-104); POTASSIUM 4.1 MMOL/L (3.5-5.1); SODIUM 142 MMOL/L (135-145); TOTAL CARBON DIOXIDE 30.6 MMOL/L (24-32); eGFR 78 ML/MIN
[2019-04-29] MEDS: enoxaparin 40mg/0.4ml syringe SUBCUT SCH (07:52)
[2019-04-29] MEDS ORDERED: CefTRIAXone/D5W-Rocephin 1gm 50 ML IV SCH (08:00)
[2019-04-29] MEDS: azithromycin/NS 500mg/250ml 250 ML IV SCH (10:24)
[2019-04-29 11:00] VITALS: BP 136/76
[2019-04-29 14:50] LABS: ABG BASE EXCESS 2.1 mmol/L (-2.0-3.0); ABG OXYGEN SATURATION 98.1 % (95-98); ABG PCO2 (T) 49.9 mmHg (35.0-45.0); ABG PH (T) 7.367 (7.350-7.450); ABG PO2 (T) 124.1 mmHg (83-108); ALLEN'S TEST Positive; FCOHb 0.3 % (0.5-1.5); FLOW 15 L/min; FMetHb 0.1 % (0.3-1.12); FO2Hb 97.7 % (94-100); TOTAL HEMOGLOBIN 9.8 G/dl (14.0-17.9)
[2019-04-29] MEDS: midodrine tablet 2.5 MG TABLET PO SCH ×3 (14:51→21:57)
[2019-04-29 14:57] LABS: BASOPHILS # (AUTO) 0.1 X10'3 (0-0.2); BASOPHILS % (AUTO) 0.4 % (0-1); EOSINOPHILS % (AUTO) 0 % (0-6); HEMOGLOBIN 8.2 g/dl (14.0-17.9); LYMPHOCYTES # (AUTO) 0.2 X10'3 (1.1-4.8); LYMPHOCYTES % (AUTO) 1.5 % (21-51); MEAN CORPUSCULAR HEMOGLOBIN 28.2 PG (27.0-31.0); MEAN CORPUSCULAR HGB CONC 31.7 g/dL (33.0-36.5); MEAN CORPUSCULAR VOLUME 89.1 FL (78-98); MEAN PLATELET VOLUME 6.9 FL (7.4-10.4); MONOCYTES # (AUTO) 0.4 X10'3 (0-0.9); MONOCYTES % (AUTO) 2.9 % (2-12); NEUTROPHILS # (AUTO) 13.7 X10'3 (1.8-7.7); NEUTROPHILS % (AUTO) 95.2 % (42-75); PLATELET COUNT 356 X10'3 (140-440); RED BLOOD COUNT 2.92 X10'6 (4.70-6.10); WHITE BLOOD COUNT 14.4 X10'3 (4.5-11.0)
[2019-04-29 15:00] VITALS: BP 67/53
--- NOTE | 2019-04-29 15:09 | NUR ---
Malnutrition consult: Pt admit w/ acute hypoxemic respiratory failure possibly combination of PNA and CHF per MD note. Pt seen by IFTIKHAR and reports wt 1 year ago 160 pounds amd has lost wt since r/t decreased appetite. Pt has no accurate wt hx only pt stated wts since December 2018 at 67kg. Current pt stated is 65.9 kg. Pt reports low PO hx but also that [facility]' told him not to drink Ensures/ONS. Pt also reports taking liquid appetite stimulant medication at home which greatly helped PO but stopped over a month ago r/t illness. Pt is agreeable to try Vanilla/Chocolate Ensure Enlives TIDWM; MD notified. Pt is aware pending MD verification prior to receiving ONS on trays. IFTIKHAR Zipt[employer] for appetite stimulant given pt hx. At this time pt has +2 BLE pitting edmea but no significant accurate wt loss hx, no wounds, no significant weakness, PO 50-75% first full liquid meals and no visible signs of muscle/fat wasting. Does not meet minimum malnutrition criteria at this time. Will monitor for ONS acceptance and PO diet tolerance as diet advances. Addendum: 04/29/19 at [address] Amended: Links added.
[2019-04-29 15:11] LABS: ALANINE AMINOTRANSFERASE 10 U/L (12-78); ALBUMIN 1.5 G/DL (3.4-5.0); ALBUMIN/GLOBULIN RATIO 0.3 (1.1-1.5); ALKALINE PHOSPHATASE 54 IU/L (46-116); ANION GAP 5 (8-16); ASPARTATE AMINO TRANSFERASE 14 U/L (10-37); BILIRUBIN,TOTAL 0.2 MG/DL (0.1-1.0); BLOOD UREA NITROGEN 26 MG/DL (7-18); BUN/CREATININE RATIO 25.7 (5.4-32.0); CALCIUM 8.3 MG/DL (8.5-10.1); CHLORIDE 107 MMOL/L (99-107); CREATININE 1.01 MG/DL (0.60-1.10); GLUCOSE 88 MG/DL (70-104); POTASSIUM 4.3 MMOL/L (3.5-5.1); SODIUM 144 MMOL/L (135-145); TOTAL CARBON DIOXIDE 32.1 MMOL/L (24-32); TOTAL PROTEIN 5.8 G/DL (6.4-8.2); eGFR 72 ML/MIN
[2019-04-29] MEDS: HYDROcodone/acetaminophen 5mg/325mg tablet PO PRN (16:06)
--- NOTE | 2019-04-29 16:45 | NUR ---
Paged Dr Fischer regarding patient's rapid response, and med rec needing to be completed. MESSAGE: Kvng Bunn [phone]. Call me [place] please [phone]
--- NOTE | 2019-04-29 16:53 | NUR ---
Patient's blood pressure dropped into the 50's systolically, called a rapid response, did AGG's, ordered blood work, did chest xray. Placed patient Trendelenburg, gave a bolus of 500ml NS, patient stayed asymptomatic. Dr Khoury ordered Midodrine 10 mg TID, gave first dose stat. Dr Fischer notified. Dr Fischer called back and said he needs to be transferred to ICU if he continues to have low blood pressure. Will continue to monitor closely for any changes.
--- NOTE | 2019-04-29 17:06 | NUR ---
Dr Fischer came and talked to the patient and patient's family at bedside, and let them know the plan of care.
[2019-04-29] MEDS ORDERED: methylPREDNISolone sod succ 125mg/2ml vial IV STA (17:08)
[2019-04-29 18:00] VITALS: BP 70/46
[2019-04-29] MEDS ORDERED: lactose-reduced food (Ensure Enlive) - 237ml bottle PO SCH (18:00)
--- NOTE | 2019-04-29 18:18 | NUR ---
Patient in room PCU 3018. I have received report from sienna Sanchez RN and had the opportunity to ask questions and assume patient care.
[2019-04-29] MEDS: normal saline 1000ml 1,000 ML IV SCH (19:00)
[2019-04-29] MEDS: methylPREDNISolone sod succ/PF 40mg inj. IV SCH (19:23)
[2019-04-29] MEDS: megestrol acetate 400mg/10ml UD oral suspension PO SCH (19:24)
[2019-04-29] MEDS: lactobacillus rhamnosus 10,000 MMU CELLS/CAPSULE PO SCH (19:24)
[2019-04-29] MEDS: atorvastatin 20mg tablet PO SCH (19:24)
[2019-04-29] MEDS: albuterol 2.5 MG/3 ML nebule NEB SCH ×2 (19:59→23:10)
[2019-04-29] MEDS ORDERED: non-formulary drug (Lactobacillus Acidophilus (ACIDOPHILUS capsule) 1 CAP) PO SCH (20:00)
--- NOTE | 2019-04-29 21:39 | NUR ---
Patient has a scheduled dose of midodrine for hypotension. Called MD to notify him that his SBP has been sustained in the 140's. MD ordered to hold midodrine and continue to monitor.
[2019-04-29 22:00] VITALS: BP 136/62
[2019-04-30] MEDS: piperacillin/tazo 3.375gm/50ml 50 ML IV SCH ×3 (00:01→16:41)
--- NOTE | 2019-04-30 00:49 | NUR ---
Called MD to notify him of BP of 182/85. No new orders at this time.
[2019-04-30 02:00] VITALS: BP 142/89
[2019-04-30] MEDS: albuterol 2.5 MG/3 ML nebule NEB SCH ×6 (03:15→23:23)
[2019-04-30 06:00] VITALS: BP 169/76
[2019-04-30 06:03] LABS: BASOPHILS % (AUTO) 0.2 % (0-1); EOSINOPHILS % (AUTO) 0 % (0-6); HEMATOCRIT 26.9 % (42.0-52.0); HEMOGLOBIN 8.8 g/dl (14.0-17.9); LYMPHOCYTES # (AUTO) 0.3 X10'3 (1.1-4.8); LYMPHOCYTES % (AUTO) 2.3 % (21-51); MEAN CORPUSCULAR HEMOGLOBIN 28.8 PG (27.0-31.0); MEAN CORPUSCULAR HGB CONC 32.8 g/dL (33.0-36.5); MEAN CORPUSCULAR VOLUME 87.8 FL (78-98); MEAN PLATELET VOLUME 7.4 FL (7.4-10.4); MONOCYTES # (AUTO) 0.2 X10'3 (0-0.9); MONOCYTES % (AUTO) 1.9 % (2-12); NEUTROPHILS # (AUTO) 10.7 X10'3 (1.8-7.7); NEUTROPHILS % (AUTO) 95.6 % (42-75); PLATELET COUNT 395 X10'3 (140-440); RED BLOOD COUNT 3.06 X10'6 (4.70-6.10); RED CELL DISTRIBUTION WIDTH 15.9 % (11.5-14.5); WHITE BLOOD COUNT 11.2 X10'3 (4.5-11.0)
--- NOTE | 2019-04-30 06:26 | NUR ---
Problems reprioritized. Patient report given, questions answered & plan of care reviewed with Manjula CARTAGENA.
[2019-04-30 06:58] LABS: ALBUMIN 1.6 G/DL (3.4-5.0); ANION GAP 7 (8-16); BLOOD UREA NITROGEN 26 MG/DL (7-18); BUN/CREATININE RATIO 27.1 (5.4-32.0); CALCIUM 8.6 MG/DL (8.5-10.1); CHLORIDE 108 MMOL/L (99-107); CREATININE 0.96 MG/DL (0.60-1.10); GLUCOSE 159 MG/DL (70-104); SODIUM 146 MMOL/L (135-145); TOTAL CARBON DIOXIDE 30.8 MMOL/L (24-32); eGFR 76 ML/MIN
--- NOTE | 2019-04-30 07:03 | NUR ---
Patient in room PCU 3018. I have received report from Denisse CARTAGENA and had the opportunity to ask questions and assume patient care. All patient's needs met at this time.
[2019-04-30] MEDS: azithromycin/NS 500mg/250ml 250 ML IV SCH (07:29)
[2019-04-30] MEDS: lactobacillus rhamnosus 10,000 MMU CELLS/CAPSULE PO SCH ×2 (07:30→19:12)
[2019-04-30] MEDS: megestrol acetate 400mg/10ml UD oral suspension PO SCH (07:30)
[2019-04-30] MEDS: atorvastatin 20mg tablet PO SCH (07:31)
[2019-04-30] MEDS: pantoprazole 40mg Tablet.DR PO SCH (07:31)
[2019-04-30] MEDS: methylPREDNISolone sod succ/PF 40mg inj. IV SCH ×2 (07:31→19:12)
[2019-04-30] MEDS: enoxaparin 40mg/0.4ml syringe SUBCUT SCH (07:33)
[2019-04-30] MEDS: midodrine tablet 2.5 MG TABLET PO SCH ×2 (08:00→16:00)
--- NOTE | 2019-04-30 08:35 | NUR ---
Paged Dr Fischer MESSAGE: Kvng Bunn [id number] FYI pt informed night nurse he had stoke on R side, this was not noted in chart, switched BP cuff to L side and BP is 169/76 this AM. Manjula Mancilla [phone]
[2019-04-30] MEDS: aspirin 81mg tablet.DR PO SCH (08:40)
[2019-04-30 11:00] VITALS: BP 125/106
[2019-04-30] MEDS: normal saline 1000ml 1,000 ML IV SCH (14:25)
[2019-04-30] MEDS: morphine 2 MG/ML inj. syringe IV PRN (14:30)
[2019-04-30 15:00] VITALS: BP 171/70
[2019-04-30 18:00] VITALS: BP 177/53
--- NOTE | 2019-04-30 18:15 | NUR ---
Paged Dr Fischer PAGER ID: [phone] MESSAGE: Kvng Bunn [id number] Can you dc the midodrine. FYI recent bp 171/70. Thanks Manjula
--- NOTE | 2019-04-30 18:15 | NUR ---
Problems reprioritized. Patient report given, questions answered & plan of care reviewed with Denisse CARTAGENA. All patient's needs met at this time.
--- NOTE | 2019-04-30 18:35 | NUR ---
Patient in room PCU 3018. I have received report from Manjula Hansen RN and had the opportunity to ask questions and assume patient care.
[2019-04-30 22:00] VITALS: BP 181/65
[2019-05-01] VITALS (7 sets, daily range): BP systolic 160–207; BP diastolic 81–130
[2019-05-01] MEDS: piperacillin/tazo 3.375gm/50ml 50 ML IV SCH ×3 (00:11→16:00)
[2019-05-01] MEDS ORDERED: lisinopril 5mg tablet PO ONE (02:25)
--- NOTE | 2019-05-01 02:25 | NUR ---
Patients current BP is 207/86. Notified MD. DOSS ordered Zesteril 5mg PO one time.
[2019-05-01] MEDS: morphine 2 MG/ML inj. syringe IV PRN (02:52)
[2019-05-01] MEDS: albuterol 2.5 MG/3 ML nebule NEB SCH ×3 (03:12→11:06)
--- NOTE | 2019-05-01 06:00 | NUR ---
Patient in room PCU 3018. I have received report from Denisse CARTAGENA and had the opportunity to ask questions and assume patient care.
[2019-05-01 06:14] LABS: BASOPHILS % (AUTO) 0.1 % (0-1); EOSINOPHILS % (AUTO) 0 % (0-6); HEMATOCRIT 26.1 % (42.0-52.0); HEMOGLOBIN 8.6 g/dl (14.0-17.9); LYMPHOCYTES # (AUTO) 0.2 X10'3 (1.1-4.8); LYMPHOCYTES % (AUTO) 2.2 % (21-51); MEAN CORPUSCULAR HEMOGLOBIN 29.2 PG (27.0-31.0); MEAN CORPUSCULAR HGB CONC 33.1 g/dL (33.0-36.5); MEAN CORPUSCULAR VOLUME 88.2 FL (78-98); MEAN PLATELET VOLUME 7.3 FL (7.4-10.4); MONOCYTES # (AUTO) 0.3 X10'3 (0-0.9); MONOCYTES % (AUTO) 2.9 % (2-12); NEUTROPHILS # (AUTO) 8.9 X10'3 (1.8-7.7); NEUTROPHILS % (AUTO) 94.8 % (42-75); PLATELET COUNT 370 X10'3 (140-440); RED BLOOD COUNT 2.96 X10'6 (4.70-6.10); RED CELL DISTRIBUTION WIDTH 15.8 % (11.5-14.5); WHITE BLOOD COUNT 9.4 X10'3 (4.5-11.0)
--- NOTE | 2019-05-01 06:14 | NUR ---
Problems reprioritized. Patient report given, questions answered & plan of care reviewed with Cristina CARTAGENA.
[2019-05-01 06:37] LABS: ALBUMIN 1.6 G/DL (3.4-5.0); ANION GAP 6 (8-16); BLOOD UREA NITROGEN 23 MG/DL (7-18); BUN/CREATININE RATIO 23.2 (5.4-32.0); CALCIUM 8.5 MG/DL (8.5-10.1); CHLORIDE 107 MMOL/L (99-107); CREATININE 0.99 MG/DL (0.60-1.10); GLUCOSE 180 MG/DL (70-104); POTASSIUM 3.8 MMOL/L (3.5-5.1); SODIUM 146 MMOL/L (135-145); TOTAL CARBON DIOXIDE 32.7 MMOL/L (24-32); eGFR 74 ML/MIN
[2019-05-01] MEDS: methylPREDNISolone sod succ/PF 40mg inj. IV SCH ×2 (07:49→20:10)
[2019-05-01] MEDS: lactobacillus rhamnosus 10,000 MMU CELLS/CAPSULE PO SCH ×2 (07:49→20:10)
[2019-05-01] MEDS: enoxaparin 40mg/0.4ml syringe SUBCUT SCH (07:50)
[2019-05-01] MEDS: aspirin 81mg tablet.DR PO SCH (07:50)
[2019-05-01] MEDS: pantoprazole 40mg Tablet.DR PO SCH (07:50)
[2019-05-01] MEDS: megestrol acetate 400mg/10ml UD oral suspension PO SCH (07:50)
[2019-05-01] MEDS: atorvastatin 20mg tablet PO SCH (07:50)
[2019-05-01] MEDS ORDERED: azithromycin 250mg tablet PO SCH (08:00)
--- NOTE | 2019-05-01 10:23 | NUR ---
Called Amado DOSS on Cell number to inform her that pt. systolic BP has been consistently above 170 this morning. states she will start pt back on BP meds after she has had the chance to see him today.
[2019-05-01] MEDS: normal saline 1000ml 1,000 ML IV SCH (10:25)
--- NOTE | 2019-05-01 10:32 | NUR ---
Paged MD regarding patient's diet order and meal consumption PAGER ID: [phone] MESSAGE: [phone] Charli Roe Pt refusing meals d/t full liquid diet orders. States he was eating w/o difficulty prior to admission. Dietitian paged and advises Heart Healthy or Regular diet but needs MD ok to advance. Pls. advise. Siri Jhonny [phone]
[2019-05-01] MEDS: losartan 50mg tablet PO SCH (12:33)
[2019-05-01] MEDS: nystatin 500,000 unit/5ML UD oral suspension PO SCH (12:38)
--- NOTE | 2019-05-01 14:51 | NUR ---
RN TC: RN requesting RD recommendation on proper diet advancement given pt admitted on full liquid diet past 3 days and unsure why. RN reports pt is drinking ONS but refusing meals past 2 days since they are full liquids. IFTIKHAR recommended heart healthy diet advancement per MD approval. LBM 04/30. Will monitor for additional PO hx since now advanced to solid diet. Rec: 1. continue heart healthy diet per MD 2. Vanilla/Chocolate Ensure Enlive TIDWM 3. weekly wts Addendum: 05/01/19 at [address] Amended: Links added.
--- NOTE | 2019-05-01 15:27 | NUR ---
Called MD regarding persistent elevated BP despite ordered Losartan administration. Received telephone orders for Hydralazine 10mg IV Once.
[2019-05-01] MEDS ORDERED: hydrALAZINE 20mg/ml inj. IV ONE (15:35)
--- NOTE | 2019-05-01 18:00 | NUR ---
Patient in room PCU 3018. I have received report from JOHANA CARTAGENA and had the opportunity to ask questions and assume patient care.
--- NOTE | 2019-05-01 19:15 | NUR ---
Problems reprioritized. Patient report given, questions answered & plan of care reviewed with Cha CARTAGENA.
[2019-05-01] MEDS: levalbuterol 1.25mg/0.5ml nebule IH SCH (20:36)
--- NOTE | 2019-05-01 22:04 | NUR ---
Called Dung for pts high BP of 183/80, he ordered cardizem, 60 mg PO Q 6 H PRN for systolic over 180, and 30 mg PO Q 6 H PRN for systolic over 160.
[2019-05-02] MEDS: piperacillin/tazo 3.375gm/50ml 50 ML IV SCH ×3 (00:22→16:07)
[2019-05-02] MEDS: normal saline 1000ml 1,000 ML IV SCH (00:33)
[2019-05-02] MEDS: diltiazem 30mg tablet PO PRN ×3 (01:28→22:55)
[2019-05-02 02:00] VITALS: BP 183/92
[2019-05-02] MEDS: levalbuterol 1.25mg/0.5ml nebule IH SCH ×4 (02:17→19:36)
[2019-05-02] MEDS ORDERED: diltiazem 30mg tablet PO ONE ×2 (04:25→13:30)
--- NOTE | 2019-05-02 04:27 | NUR ---
Called Dung about Pts increased BP even after giving the 30 mg of cardizem, he ordered a one time dose of 30 mg cardizem.
[2019-05-02 06:00] VITALS: BP 181/80
--- NOTE | 2019-05-02 06:00 | NUR ---
Patient in room PCU 3018. I have received report from Cha CARTAGENA and had the opportunity to ask questions and assume patient care.
--- NOTE | 2019-05-02 06:00 | NUR ---
Problems reprioritized. Patient report given, questions answered & plan of care reviewed with JOHANA CARTAGENA.
[2019-05-02 06:12] LABS: BASOPHILS # (AUTO) 0.1 X10'3 (0-0.2); BASOPHILS % (AUTO) 0.6 % (0-1); EOSINOPHILS % (AUTO) 0 % (0-6); HEMATOCRIT 27.7 % (42.0-52.0); HEMOGLOBIN 9.2 g/dl (14.0-17.9); LYMPHOCYTES # (AUTO) 0.2 X10'3 (1.1-4.8); LYMPHOCYTES % (AUTO) 2.2 % (21-51); MEAN CORPUSCULAR VOLUME 87.7 FL (78-98); MEAN PLATELET VOLUME 7.5 FL (7.4-10.4); MONOCYTES # (AUTO) 0.3 X10'3 (0-0.9); MONOCYTES % (AUTO) 3.4 % (2-12); NEUTROPHILS # (AUTO) 9.2 X10'3 (1.8-7.7); NEUTROPHILS % (AUTO) 93.8 % (42-75); PLATELET COUNT 355 X10'3 (140-440); RED BLOOD COUNT 3.16 X10'6 (4.70-6.10); WHITE BLOOD COUNT 9.8 X10'3 (4.5-11.0)
[2019-05-02 06:30] LABS: ALBUMIN 1.7 G/DL (3.4-5.0); ANION GAP 5 (8-16); BLOOD UREA NITROGEN 22 MG/DL (7-18); BUN/CREATININE RATIO 25.9 (5.4-32.0); CALCIUM 8.6 MG/DL (8.5-10.1); CHLORIDE 107 MMOL/L (99-107); CREATININE 0.85 MG/DL (0.60-1.10); GLUCOSE 179 MG/DL (70-104); POTASSIUM 3.7 MMOL/L (3.5-5.1); SODIUM 145 MMOL/L (135-145); TOTAL CARBON DIOXIDE 33.4 MMOL/L (24-32); eGFR 88 ML/MIN
[2019-05-02] MEDS: methylPREDNISolone sod succ/PF 40mg inj. IV SCH ×2 (08:24→19:53)
[2019-05-02] MEDS: enoxaparin 40mg/0.4ml syringe SUBCUT SCH (08:24)
[2019-05-02] MEDS: HYDROcodone/acetaminophen 5mg/325mg tablet PO PRN ×2 (08:25→21:36)
[2019-05-02] MEDS: nystatin 500,000 unit/5ML UD oral suspension PO SCH (08:25)
[2019-05-02] MEDS: pantoprazole 40mg Tablet.DR PO SCH (08:25)
[2019-05-02] MEDS: lactobacillus rhamnosus 10,000 MMU CELLS/CAPSULE PO SCH ×2 (08:25→19:53)
[2019-05-02] MEDS: aspirin 81mg tablet.DR PO SCH (08:25)
[2019-05-02] MEDS: losartan 50mg tablet PO SCH (08:25)
[2019-05-02] MEDS: atorvastatin 20mg tablet PO SCH (08:25)
[2019-05-02] MEDS: megestrol acetate 400mg/10ml UD oral suspension PO SCH (08:26)
[2019-05-02 11:00] VITALS: BP 169/91
[2019-05-02] MEDS ORDERED: diltiazem 5mg/ml 5ml inj. IV ONE (12:50)
[2019-05-02 15:00] VITALS: BP 127/63
[2019-05-02] MEDS: lactose-reduced food (Ensure Enlive) - 237ml bottle PO SCH (18:00)
--- NOTE | 2019-05-02 18:00 | NUR ---
Problems reprioritized. Patient report given, questions answered & plan of care reviewed with Debra CARTAGENA.
[2019-05-02 18:30] VITALS: BP 127/67
--- NOTE | 2019-05-02 19:03 | NUR ---
Received report from Aiyana CARTAGENA pt is wearing high flow nasal cannula, [facility] came to peanut picker patient for transport, informed them that the patient was staying due to being in A.fib
[2019-05-02 22:45] VITALS: BP 140/71
--- NOTE | 2019-05-02 22:59 | NUR ---
pts HR has been hanging out in the 130s spoke with Dr. Razo he ordered to give the patient cardizem I informed him he had the 60mg dose or a 30mg does for B/P he stated to give the 60mg dose. pts B/P: 140/71
[2019-05-03] MEDS: piperacillin/tazo 3.375gm/50ml 50 ML IV SCH ×2 (00:13→08:02)
[2019-05-03 02:30] VITALS: BP 144/68
[2019-05-03] MEDS: levalbuterol 1.25mg/0.5ml nebule IH SCH ×3 (03:42→14:00)
[2019-05-03] MEDS: diltiazem 30mg tablet PO PRN ×2 (05:19→08:13)
[2019-05-03 06:00] VITALS: BP 188/80
--- NOTE | 2019-05-03 06:03 | NUR ---
Gave report to taiwo CARTAGENA pt is resting wearing high flow o2 with Fio2 of 45
[2019-05-03] MEDS: normal saline 1000ml 1,000 ML IV SCH (06:55)
--- NOTE | 2019-05-03 07:00 | NUR ---
Patient in room PCU 3018. I have received report from Debra CARTAGENA and had the opportunity to ask questions and assume patient care.
[2019-05-03 07:25] LABS: BASOPHILS % (AUTO) 0.2 % (0-1); EOSINOPHILS % (AUTO) 0 % (0-6); HEMOGLOBIN 9.1 g/dl (14.0-17.9); LYMPHOCYTES # (AUTO) 0.2 X10'3 (1.1-4.8); LYMPHOCYTES % (AUTO) 2.4 % (21-51); MEAN CORPUSCULAR HEMOGLOBIN 28.7 PG (27.0-31.0); MEAN CORPUSCULAR HGB CONC 32.4 g/dL (33.0-36.5); MEAN CORPUSCULAR VOLUME 88.7 FL (78-98); MEAN PLATELET VOLUME 7.8 FL (7.4-10.4); MONOCYTES # (AUTO) 0.2 X10'3 (0-0.9); MONOCYTES % (AUTO) 2.4 % (2-12); NEUTROPHILS # (AUTO) 9.3 X10'3 (1.8-7.7); PLATELET COUNT 388 X10'3 (140-440); RED BLOOD COUNT 3.15 X10'6 (4.70-6.10); RED CELL DISTRIBUTION WIDTH 16.2 % (11.5-14.5); WHITE BLOOD COUNT 9.8 X10'3 (4.5-11.0)
[2019-05-03 07:45] LABS: ALBUMIN 1.8 G/DL (3.4-5.0); ANION GAP 5 (8-16); BLOOD UREA NITROGEN 30 MG/DL (7-18); BUN/CREATININE RATIO 26.8 (5.4-32.0); CALCIUM 8.7 MG/DL (8.5-10.1); CHLORIDE 106 MMOL/L (99-107); CREATININE 1.12 MG/DL (0.60-1.10); GLUCOSE 197 MG/DL (70-104); POTASSIUM 3.7 MMOL/L (3.5-5.1); SODIUM 147 MMOL/L (135-145); TOTAL CARBON DIOXIDE 35.6 MMOL/L (24-32); eGFR 64 ML/MIN
[2019-05-03] MEDS: enoxaparin 40mg/0.4ml syringe SUBCUT SCH (08:01)
[2019-05-03] MEDS: pantoprazole 40mg Tablet.DR PO SCH (08:02)
[2019-05-03] MEDS: atorvastatin 20mg tablet PO SCH (08:02)
[2019-05-03] MEDS: methylPREDNISolone sod succ/PF 40mg inj. IV SCH (08:02)
[2019-05-03] MEDS: aspirin 81mg tablet.DR PO SCH (08:02)
[2019-05-03] MEDS: nystatin 500,000 unit/5ML UD oral suspension PO SCH (08:02)
[2019-05-03] MEDS: losartan 50mg tablet PO SCH (08:02)
[2019-05-03] MEDS: lactobacillus rhamnosus 10,000 MMU CELLS/CAPSULE PO SCH (08:02)
[2019-05-03] MEDS: megestrol acetate 400mg/10ml UD oral suspension PO SCH (08:03)
[2019-05-03] MEDS: lactose-reduced food (Ensure Enlive) - 237ml bottle PO SCH ×2 (08:24→13:00)
[2019-05-03 10:12] LABS: TOTAL CELLS COUNTED 100
[2019-05-03 10:15] LABS: ANISOCYTOSIS 1+; ELLIPTOCYTES 1+; LARGE PLATELETS FEW; PLATELET ESTIMATE NORMAL; POLYCHROMASIA FEW; SCHISTOCYTES FEW; TEAR DROP CELLS FEW
[2019-05-03 11:00] VITALS: BP 188/78
--- NOTE | 2019-05-03 13:20 | NUR ---
Per MD orders, patient stable for transfer to [facility]. Report called to Kristin CARTAGENA from [facility]. Sister Brunilda informed of transfer and present at bedside during transfer. All belongings sent with patient. No home meds stored in pharmacy. Transfer packet and report given to [facility] personnel. PIV kept in place and saline locked. Tele monitoring discontinued. Transferred via gurney to ambulance accompanied by [facility] personnel and sister.
== END 2019-05-03 13:20 | DRG 871 ==
LOC: ER 11:28 → ED HOLD 13:36 → PCU 3S 15:44
PROVIDERS: ADMIT Internal Medicine; ATTEND Internal Medicine
PROC: 5A09357 Assistance with Respiratory Ventilation, Less than 24 Consecutive Hours, Continuous Positive Airway Pressure (ICD-10-PCS; principal; 2019-04-28)
PROC: 5A09357 Assistance with Respiratory Ventilation, Less than 24 Consecutive Hours, Continuous Positive Airway Pressure (ICD-10-PCS; 2019-04-29)
DX: A41.9 Sepsis, unspecified organism (principal); J18.9 Pneumonia, unspecified organism; J96.01 Acute respiratory failure with hypoxia; J44.0 Chronic obstructive pulmonary disease with (acute) lower respiratory infection; J44.1 Chronic obstructive pulmonary disease with (acute) exacerbation; I69.351 Hemiplegia and hemiparesis following cerebral infarction affecting right dominant side; I24.8 Other forms of acute ischemic heart disease; I48.0 Paroxysmal atrial fibrillation; E78.5 Hyperlipidemia, unspecified; K21.9 Gastro-esophageal reflux disease without esophagitis; Z66 Do not resuscitate; I50.9 Heart failure, unspecified; D64.9 Anemia, unspecified; D63.8 Anemia in other chronic diseases classified elsewhere; I11.0 Hypertensive heart disease with heart failure; Z87.891 Personal history of nicotine dependence
CPT/HCPCS: 36415; 36600; 71045; 80048; 80053; 80162; 82803; 83605; 83735; 83880; 84145; 84484; 85018; 85025; 85610; 85730; 87040; 87081; 93005; 94640; 94660; 94760; 96365; 96375; 99291; G0378; J0360; J0456; J0696; J1160; J1650; J1940; J1956; J2270; J2543; J2920; J2930; J3370; J3490; J7030; J7614